=== PATIENT | male | born 1935 ===

== ENCOUNTER 2017-05-07 08:50 | Outpatient (CLI) | payer OTHER | END 2017-05-07 17:00 | disposition home or self-care (01) | LOC: MRI 08:50 | DX: M48.07 Spinal stenosis, lumbosacral region (principal) | CPT/HCPCS: 72148 ==

== ENCOUNTER 2018-04-10 13:51 | Outpatient (CLI) | payer OTHER | END 2018-04-10 14:07 | disposition home or self-care (01) | LOC: MRI 13:51 | DX: M86.18 Other acute osteomyelitis, other site (principal) | CPT/HCPCS: 72148 ==